=== PATIENT | male | born 1960 | race Caucasian/White ===

== ENCOUNTER 2016-12-28 14:34 | Outpatient (CLI) | payer OTHER ==
--- NOTE | 2016-12-28 17:37 | RAD ---
3 VIEWS LEFT HAND: Date: 12/28/16 HISTORY: Degenerative joint disease bilateral carpometacarpal joints. Repetitive motions at work. Left hand p ain. FINDINGS: There is osteoarthritis involving the interphalangeal joints, greatest involving the interphalangeal joint of the thumb, as well as the small finger and index finger. There is significant joint space narrowing and prominent osteophytes. There are prominent subchondral cystic changes involving the he ad of the proximal phalanx of the thumb. Minimal osteoarthritis involves the first carpometacarpal j oint. There is no fracture or dislocation involving the left hand. 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 POS: [facility]
--- NOTE | 2016-12-28 17:41 | RAD ---
3 VIEWS RIGHT HAND: Date: 12/28/16 HISTORY: Degenerative joint disease bilateral carpometacarpal joints. Arthritic pain. Repetitive motions at w ork. FINDINGS: There is osteoarthritis involving the interphalangeal joints, much greater involving the interphalan geal joint of the thumb and small finger. There is osteoarthritis involving the second metacarpophal angeal joint with joint space narrowing and prominent osteophyte present. There is mild osteoarthrit is involving the first carpometacarpal joint. Lucency is seen within the capitate, probably related to intraosseous ganglion. No fracture or dislocation seen. IMPRESSION: Osteoarthritis, greatest involving the interphalangeal joints and second metacarpophalangeal joint. POS: [facility]
== END 2016-12-28 14:35 | disposition home or self-care (01) ==
LOC: NAV RAD 14:34
PROVIDERS: ATTEND Family Medicine
DX: M18.0 Bilateral primary osteoarthritis of first carpometacarpal joints (principal); M19.042 Primary osteoarthritis, left hand

== ENCOUNTER 2020-01-12 18:13 | Emergency (ER) | payer OTHER ==
[2020-01-12 19:14] LABS: #Basophils 0.1 thou/uL (0.0-0.2); #Eosinphils 0.5 thou/uL (0.0-0.7); #Lymphocytes 1.2 thou/uL (1.20-3.40); #Monocytes 0.8 thou/uL (0.11-0.59); #Neutrophils 7.1 thou/uL (1.40-6.50); %Basophils 1.2 % (0.0-1.0); %Eosinophils 4.8 % (0.0-10.0); %Lymphocytes 12.4 % (21.0-51.0); %Monocytes 8.6 % (0.0-10.0); Hemoglobin 9.2 g/dL (14.0-18.0); Mean Corpuscular HGB CONC 31.8 g/dL (32.0-36.0); Mean Corpuscular Hemoglobin 31.2 pg (27.0-31.0); Mean Corpuscular Volume 98.1 fL (78.0-98.0); Mean Platelet Volume 7.6 fL (7.4-10.4); Platelet Count 285 thou/uL (130-400); RBC Distribution Width 12.7 % (11.5-14.5); Red Blood Cell (RBC) Count 2.94 mill/uL (4.70-6.10); White Blood Cell (WBC) Count 9.7 thou/uL (4.8-10.8)
[2020-01-12 19:27] LABS: ALT (SGPT) 17 U/L (8-55); AST (SGOT) 18 U/L (5-34); Albumin 3.5 g/dL (3.5-5.0); Alkaline Phosphatase 51 U/L (40-110); Anion Gap 14 mmol/L (10-20); BUN (Urea Nitrogen) 53 mg/dL (8.4-25.7); Bilirubin, Total 0.4 mg/dL (0.2-1.2); Calc. Creatinine Clearance 0 mL/min (70-130); Calcium 8.5 mg/dL (7.8-10.44); Carbon Dioxide 20 mmol/L (22-29); Chloride 105 mmol/L (98-107); Estimated GFR-MDRD 24; Globulin 2.7 g/dL (2.4-3.5); Glucose 157 mg/dL (70-105); Lipase 11 U/L (8-78); Potassium 4.4 mmol/L (3.5-5.1); Protein, Total 6.2 g/dL (6.0-8.3); Sodium 135 mmol/L (136-145)
== END 2020-01-12 19:55 | disposition home or self-care (01) ==
LOC: NAV ERS 18:13
DX: K59.00 Constipation, unspecified (principal); I13.0 Hypertensive heart and chronic kidney disease with heart failure and stage 1 through stage 4 chronic kidney disease, or unspecified chronic kidney disease; N18.9 Chronic kidney disease, unspecified; D64.9 Anemia, unspecified; K64.9 Unspecified hemorrhoids; E11.22 Type 2 diabetes mellitus with diabetic chronic kidney disease; E78.5 Hyperlipidemia, unspecified; Z87.891 Personal history of nicotine dependence; Z79.82 Long term (current) use of aspirin; Z79.899 Other long term (current) drug therapy
CPT/HCPCS: 80053; 83690; 85025; 99284

== ENCOUNTER 2020-01-27 09:11 | Emergency (ER) | payer OTHER ==
[2020-01-27] MEDS ORDERED: Fleet Enema 133 ML BOT ONE ×2 (09:40→10:59)
[2020-01-27] MEDS ORDERED: Ondansetron PF 4 MG/2 ML Vial ONE (10:06)
[2020-01-27] MEDS ORDERED: Sodium Chloride 0.9% 1,000 ML ONE (10:06)
--- NOTE | 2020-01-27 10:49 | RAD ---
Exam: 1 view abdomen HISTORY: Constipation. FINDINGS: Surgical clips in the right hemiabdomen may represent previous cystectomy. Nonspecific bowel gas pattern. No suspicious densities in the abdomen. Densities in the right hemipel vis are presumed to be phleboliths. Bowel gas pattern is nonspecific. Moderate fecal material is noted in the sigmoid colon and rectum. Vacuum disc phenomenon at L2-L3. Visualized bony pelvis and sacrum IMPRESSION: Significant fecal material sigmoid colon and rectum. Correlate for constipation.
[2020-01-27] MEDS ORDERED: Magnesium Citrate 300 ML BOT ONE (10:59)
[2020-01-27] MEDS ORDERED: Insulin Regular 300 UNITS/3 ML VIAL ONE (12:00)
== END 2020-01-27 12:40 | disposition home or self-care (01) ==
LOC: NAV ERS 09:11
DX: K59.00 Constipation, unspecified (principal); I10 Essential (primary) hypertension; E11.9 Type 2 diabetes mellitus without complications; E78.5 Hyperlipidemia, unspecified; Z87.891 Personal history of nicotine dependence; Z79.899 Other long term (current) drug therapy; Z79.82 Long term (current) use of aspirin
CPT/HCPCS: 36416; 74018; 96361; 96374; J1815; J2405; J7050

== ENCOUNTER 2020-11-15 16:59 | Inpatient (IN) | payer OTHER ==
[2020-11-15 17:31] VITALS: BMI 24.5
[2020-11-15] MEDS ORDERED: Polyethylene Glycol 3350 17 GM Packet PO PRN (17:59)
[2020-11-15] MEDS ORDERED: Senokot S 8.6-50 MG TAB PO PRN (17:59)
[2020-11-15] MEDS ORDERED: HumaLOG 300 UNITS/3 ML VIAL SC PRN ×2 (18:04)
[2020-11-15] MEDS ORDERED: Ondansetron ODT 4 MG TAB PO PRN (18:04)
[2020-11-15] MEDS ORDERED: Dextrose 50% Abboject 50 ML SYRINGE SLOW IVP PRN (18:04)
[2020-11-15] MEDS: Acetaminophen 500 MG TAB PO SCH (18:59)
[2020-11-15] MEDS: Calcium Carbonate 500 MG ChewTAB PO SCH (18:59)
[2020-11-15] MEDS: Lantus 1000 UNITS/10 ML VIAL SC SCH (21:10)
[2020-11-15] MEDS: Ferrous Sulfate 325 MG TAB PO SCH (21:11)
[2020-11-15] MEDS: Aspirin 81 mg Enteric Coated Tablet PO SCH (21:11)
[2020-11-15] MEDS: Ascorbic Acid 500 mg Chewable Tablet PO SCH (21:12)
[2020-11-15] MEDS: TICAGRELOR 90 MG TABLET PO SCH (21:12)
[2020-11-15] MEDS: hydrALAZINE 25 MG TAB PO SCH (21:12)
[2020-11-15] MEDS: Atorvastatin Calcium 40 MG TAB PO SCH (21:12)
[2020-11-15] MEDS: cloNIDine 0.2 MG TAB PO SCH (21:13)
[2020-11-16] MEDS: Acetaminophen 500 MG TAB PO SCH ×5 (00:22→23:58)
[2020-11-16] MEDS: traMADol HCl 50 MG TAB PO SCH ×3 (00:23→20:11)
[2020-11-16] MEDS: hydrALAZINE 25 MG TAB PO SCH ×3 (05:24→20:09)
[2020-11-16 05:36] LABS: #Basophils 0.1 thou/uL (0.0-0.2); #Eosinphils 0.1 thou/uL (0.0-0.7); #Lymphocytes 0.3 thou/uL (1.20-3.40); #Monocytes 0.9 thou/uL (0.11-0.59); #Neutrophils 17.7 thou/uL (1.40-6.50); %Basophils 0.3 % (0.0-1.0); %Eosinophils 0.6 % (0.0-10.0); %Lymphocytes 1.4 % (21.0-51.0); %Monocytes 4.6 % (0.0-10.0); %Neutrophils 93.1 % (42.0-75.0); Hemoglobin 7.6 g/dL (14.0-18.0); Mean Corpuscular HGB CONC 30.5 g/dL (32.0-36.0); Mean Corpuscular Hemoglobin 30.3 pg (27.0-31.0); Mean Corpuscular Volume 99.3 fL (78.0-98.0); Mean Platelet Volume 6.1 fL (7.4-10.4); Platelet Count 235 thou/uL (130-400); RBC Distribution Width 13.9 % (11.5-14.5); Red Blood Cell (RBC) Count 2.49 mill/uL (4.70-6.10)
[2020-11-16 05:53] LABS: ALT (SGPT) Less than 6 U/L (8-55); AST (SGOT) 16 U/L (5-34); Albumin 2.4 g/dL (3.5-5.0); Alkaline Phosphatase 132 U/L (40-110); Anion Gap 14 mmol/L (10-20); BUN (Urea Nitrogen) 55 mg/dL (8.4-25.7); Bilirubin, Total 0.6 mg/dL (0.2-1.2); Calc. Creatinine Clearance 29 mL/min (70-130); Calcium 7.4 mg/dL (7.8-10.44); Carbon Dioxide 28 mmol/L (22-29); Chloride 99 mmol/L (98-107); Globulin 3.1 g/dL (2.4-3.5); Glucose 121 mg/dL (70-105); Potassium 3.5 mmol/L (3.5-5.1); Protein, Total 5.5 g/dL (6.0-8.3); Sodium 137 mmol/L (136-145)
[2020-11-16] MEDS ORDERED: Ondansetron ODT 4 MG TAB SL PRN (08:15)
[2020-11-16] MEDS: Calcium Carbonate 500 MG ChewTAB PO SCH ×4 (08:54→17:55)
[2020-11-16] MEDS: Famotidine 20 MG TAB PO SCH (08:55)
[2020-11-16] MEDS: Furosemide 80 MG TAB PO SCH ×2 (08:55→14:41)
[2020-11-16] MEDS: Aspirin 81 mg Enteric Coated Tablet PO SCH ×2 (08:55→20:06)
[2020-11-16] MEDS: Ascorbic Acid 500 mg Chewable Tablet PO SCH ×2 (08:55→20:06)
[2020-11-16] MEDS: Ferrous Sulfate 325 MG TAB PO SCH ×2 (08:55→20:05)
[2020-11-16] MEDS: Carvedilol 25 MG TAB PO SCH ×2 (08:56→17:55)
[2020-11-16] MEDS: cloNIDine 0.2 MG TAB PO SCH ×3 (08:57→20:06)
[2020-11-16] MEDS: TICAGRELOR 90 MG TABLET PO SCH ×2 (08:59→20:06)
[2020-11-16] MEDS ORDERED: AQUAPHOR TOP SCH (09:00)
[2020-11-16] MEDS ORDERED: Allopurinol 100 MG TAB PO SCH ×4 (09:00→21:45)
[2020-11-16] MEDS: Cholecalciferol 1,000 UNITS (25 MCG) TAB PO SCH (09:01)
[2020-11-16] MEDS ORDERED: Eucerin (Mineral Oil/Petrolatum,White) 30 gm Jar TOP SCH (10:45)
[2020-11-16] MEDS: Lantus 1000 UNITS/10 ML VIAL SC SCH (20:04)
[2020-11-16] MEDS: Mirtazapine 15 MG TAB PO SCH (20:05)
[2020-11-16] MEDS: Atorvastatin Calcium 40 MG TAB PO SCH (20:05)
[2020-11-17] MEDS: hydrALAZINE 25 MG TAB PO SCH ×3 (05:17→21:07)
[2020-11-17] MEDS: Acetaminophen 500 MG TAB PO SCH ×3 (05:18→18:15)
[2020-11-17] MEDS: Famotidine 20 MG TAB PO SCH (08:38)
[2020-11-17] MEDS: Carvedilol 25 MG TAB PO SCH ×2 (08:38→17:14)
[2020-11-17] MEDS: traMADol HCl 50 MG TAB PO SCH ×2 (08:39→21:08)
[2020-11-17] MEDS: Cholecalciferol 1,000 UNITS (25 MCG) TAB PO SCH (08:40)
[2020-11-17] MEDS: Ascorbic Acid 500 mg Chewable Tablet PO SCH ×2 (08:40→21:08)
[2020-11-17] MEDS: cloNIDine 0.2 MG TAB PO SCH ×3 (08:41→21:08)
[2020-11-17] MEDS: Ferrous Sulfate 325 MG TAB PO SCH ×2 (08:41→21:08)
[2020-11-17] MEDS: Aspirin 81 mg Enteric Coated Tablet PO SCH ×2 (08:41→21:07)
[2020-11-17] MEDS: TICAGRELOR 90 MG TABLET PO SCH ×2 (08:42→21:08)
[2020-11-17] MEDS: Calcium Carbonate 500 MG ChewTAB PO SCH ×3 (08:42→18:16)
[2020-11-17] MEDS: Eucerin (Mineral Oil/Petrolatum,White) 30 gm Jar TOP SCH (08:42)
[2020-11-17] MEDS: Furosemide 80 MG TAB PO SCH (08:42)
[2020-11-17] MEDS: Lantus 1000 UNITS/10 ML VIAL SC SCH (21:06)
[2020-11-17] MEDS: Mirtazapine 15 MG TAB PO SCH (21:07)
[2020-11-17] MEDS: Atorvastatin Calcium 40 MG TAB PO SCH (21:08)
[2020-11-18] MEDS: Acetaminophen 500 MG TAB PO SCH ×3 (00:09→12:40)
[2020-11-18 05:11] LABS: #Basophils 0.1 thou/uL (0.0-0.2); #Eosinphils 0.3 thou/uL (0.0-0.7); #Lymphocytes 0.4 thou/uL (1.20-3.40); #Monocytes 1.7 thou/uL (0.11-0.59); #Neutrophils 13.8 thou/uL (1.40-6.50); %Basophils 0.7 % (0.0-1.0); %Lymphocytes 2.5 % (21.0-51.0); %Monocytes 10.1 % (0.0-10.0); %Neutrophils 84.7 % (42.0-75.0); Hemoglobin 7.6 g/dL (14.0-18.0); Mean Corpuscular HGB CONC 30.3 g/dL (32.0-36.0); Mean Corpuscular Hemoglobin 30.1 pg (27.0-31.0); Mean Corpuscular Volume 99.5 fL (78.0-98.0); Mean Platelet Volume 5.9 fL (7.4-10.4); Platelet Count 319 thou/uL (130-400); Red Blood Cell (RBC) Count 2.53 mill/uL (4.70-6.10); White Blood Cell (WBC) Count 16.4 thou/uL (4.8-10.8)
[2020-11-18] MEDS: hydrALAZINE 25 MG TAB PO SCH ×2 (05:50→13:24)
[2020-11-18 08:15] VITALS: TEMP 98.6
[2020-11-18] MEDS ORDERED: Metolazone 5 MG TAB PO SCH (08:30)
[2020-11-18] MEDS: Furosemide 80 MG TAB PO SCH (08:38)
[2020-11-18] MEDS: Cholecalciferol 1,000 UNITS (25 MCG) TAB PO SCH (08:38)
[2020-11-18] MEDS: Ascorbic Acid 500 mg Chewable Tablet PO SCH (08:39)
[2020-11-18] MEDS: traMADol HCl 50 MG TAB PO SCH (08:39)
[2020-11-18] MEDS: Famotidine 20 MG TAB PO SCH (08:39)
[2020-11-18] MEDS: Calcium Carbonate 500 MG ChewTAB PO SCH ×2 (08:39→12:39)
[2020-11-18] MEDS: Ferrous Sulfate 325 MG TAB PO SCH (08:39)
[2020-11-18] MEDS: Carvedilol 25 MG TAB PO SCH (08:40)
[2020-11-18] MEDS: TICAGRELOR 90 MG TABLET PO SCH (08:40)
[2020-11-18] MEDS: Aspirin 81 mg Enteric Coated Tablet PO SCH (08:40)
[2020-11-18] MEDS: cloNIDine 0.2 MG TAB PO SCH (08:41)
[2020-11-18] MEDS: Eucerin (Mineral Oil/Petrolatum,White) 30 gm Jar TOP SCH (08:41)
[2020-11-18] MEDS ORDERED: Scopolamine 1.5 mg/72 hour Patch TD SCH (12:00)
[2020-11-18 15:12] VITALS: BP 143/69
== END 2020-11-18 15:05 | disposition short-term general hospital (02) | DRG 559 ==
LOC: NAV ACUTE 16:59
PROVIDERS: ADMIT Family Medicine; ATTEND Family Medicine
DX: S72.001D Fracture of unspecified part of neck of right femur, subsequent encounter for closed fracture with routine healing (principal); N18.6 End stage renal disease; I50.23 Acute on chronic systolic (congestive) heart failure; J96.90 Respiratory failure, unspecified, unspecified whether with hypoxia or hypercapnia; I13.2 Hypertensive heart and chronic kidney disease with heart failure and with stage 5 chronic kidney disease, or end stage renal disease; E11.22 Type 2 diabetes mellitus with diabetic chronic kidney disease; E78.5 Hyperlipidemia, unspecified; I25.10 Atherosclerotic heart disease of native coronary artery without angina pectoris; E11.319 Type 2 diabetes mellitus with unspecified diabetic retinopathy without macular edema; D63.1 Anemia in chronic kidney disease; R53.81 Other malaise; R63.0 Anorexia; F32.9 Major depressive disorder, single episode, unspecified; E11.40 Type 2 diabetes mellitus with diabetic neuropathy, unspecified; Z95.5 Presence of coronary angioplasty implant and graft; Z90.49 Acquired absence of other specified parts of digestive tract; Z98.890 Other specified postprocedural states; Z87.891 Personal history of nicotine dependence; Z79.82 Long term (current) use of aspirin; Z79.4 Long term (current) use of insulin; Z79.899 Other long term (current) drug therapy; Z68.24 Body mass index [BMI] 24.0-24.9, adult; Z99.2 Dependence on renal dialysis
CPT/HCPCS: 36416; 71045; 80053; 84145; 85025; 97602; J1815

== ENCOUNTER 2020-11-29 19:52 | Inpatient (IN) | payer OTHER ==
[2020-11-29] MEDS ORDERED: Dextrose 50% Abboject 50 ML SYRINGE SLOW IVP PRN (20:58)
[2020-11-29] MEDS ORDERED: Ondansetron ODT 4 MG TAB PO PRN (20:58)
[2020-11-29] MEDS ORDERED: HumaLOG 300 UNITS/3 ML VIAL SC PRN (20:58)
[2020-11-29] MEDS ORDERED: Furosemide 80 MG TAB PO SCH (21:00)
[2020-11-29] MEDS ORDERED: Scopolamine 1.5 mg/72 hour Patch TD SCH (21:00)
[2020-11-29] MEDS: Aspirin 81 mg Enteric Coated Tablet PO SCH (21:59)
[2020-11-29] MEDS: Atorvastatin Calcium 40 MG TAB PO SCH (21:59)
[2020-11-29] MEDS: Mirtazapine 15 MG Soltab PO SCH (21:59)
[2020-11-29] MEDS: Senokot S 8.6-50 MG TAB PO SCH (21:59)
[2020-11-29] MEDS: Ascorbic Acid 500 mg Chewable Tablet PO SCH (22:00)
[2020-11-29] MEDS: cloNIDine 0.1 MG TAB PO SCH (22:01)
[2020-11-29] MEDS: Ferrous Sulfate 325 MG TAB PO SCH (22:01)
[2020-11-29] MEDS: hydrALAZINE 25 MG TAB PO SCH (22:03)
[2020-11-29] MEDS: TICAGRELOR 90 MG TABLET PO SCH (22:04)
[2020-11-30 05:43] LABS: Anion Gap 15 mmol/L (10-20); BUN (Urea Nitrogen) 25 mg/dL (8.4-25.7); Calc. Creatinine Clearance 29 mL/min (70-130); Calcium 8.1 mg/dL (7.8-10.44); Carbon Dioxide 29 mmol/L (22-29); Chloride 98 mmol/L (98-107); Glucose 109 mg/dL (70-105); Potassium 4.3 mmol/L (3.5-5.1); Sodium 138 mmol/L (136-145)
[2020-11-30 05:59] LABS: Band 15 % (5-11); Eosinophils 1 % (0-10); Hemoglobin 8.8 g/dL (14.0-18.0); Hypochromia SLIGHT = 6-15 cells (100X) (0-5/hpf); Lymphocytes 5 % (21-51); MDiff Complete? YES; Mean Corpuscular HGB CONC 29.8 g/dL (32.0-36.0); Mean Corpuscular Hemoglobin 29.9 pg (27.0-31.0); Mean Platelet Volume 6.1 fL (7.4-10.4); Monocytes 4 % (0-10); Neutrophil 75 % (42-75); Platelet Count 332 thou/uL (130-400); Platelet Morphology Comment Appears Adequate; RBC Distribution Width 15.6 % (11.5-14.5); Red Blood Cell (RBC) Count 2.95 mill/uL (4.70-6.10); White Blood Cell (WBC) Count 14.6 thou/uL (4.8-10.8)
[2020-11-30] MEDS: cloNIDine 0.1 MG TAB PO SCH ×2 (08:19→20:09)
[2020-11-30] MEDS: Polyethylene Glycol 3350 17 GM Packet PO SCH (08:19)
[2020-11-30] MEDS: Calcium Carbonate 500 MG ChewTAB PO SCH ×3 (08:19→17:46)
[2020-11-30] MEDS: Ferrous Sulfate 325 MG TAB PO SCH ×2 (08:19→20:08)
[2020-11-30] MEDS: Cholecalciferol 1,000 UNITS (25 MCG) TAB PO SCH (08:20)
[2020-11-30] MEDS: Aspirin 81 mg Enteric Coated Tablet PO SCH ×2 (08:20→20:08)
[2020-11-30] MEDS: Carvedilol 25 MG TAB PO SCH ×2 (08:20→16:00)
[2020-11-30] MEDS: hydrALAZINE 25 MG TAB PO SCH ×2 (08:20→20:08)
[2020-11-30] MEDS: Senokot S 8.6-50 MG TAB PO SCH ×2 (08:21→20:12)
[2020-11-30] MEDS: traMADol HCl 50 MG TAB PO SCH ×2 (08:21→20:10)
[2020-11-30] MEDS: Ascorbic Acid 500 mg Chewable Tablet PO SCH ×2 (08:22→20:08)
[2020-11-30] MEDS: Metolazone 5 MG TAB PO SCH (08:22)
[2020-11-30] MEDS: Furosemide 80 MG TAB PO SCH ×2 (08:22→15:50)
[2020-11-30] MEDS: Famotidine 20 MG TAB PO SCH (08:23)
[2020-11-30] MEDS: TICAGRELOR 90 MG TABLET PO SCH ×2 (08:23→20:06)
[2020-11-30] MEDS ORDERED: Ondansetron ODT 4 MG TAB SL PRN (10:30)
[2020-11-30] MEDS: Scopolamine 1.5 mg/72 hour Patch TD SCH (15:51)
[2020-11-30] MEDS: Atorvastatin Calcium 40 MG TAB PO SCH (20:06)
[2020-11-30] MEDS: Mirtazapine 15 MG Soltab PO SCH (20:08)
[2020-12-01] MEDS: traMADol HCl 50 MG TAB PO SCH ×2 (09:13→20:10)
[2020-12-01] MEDS: Furosemide 80 MG TAB PO SCH ×2 (09:15→14:54)
[2020-12-01] MEDS: TICAGRELOR 90 MG TABLET PO SCH ×2 (09:15→20:11)
[2020-12-01] MEDS: Metolazone 5 MG TAB PO SCH (09:15)
[2020-12-01] MEDS: Ferrous Sulfate 325 MG TAB PO SCH ×2 (09:15→20:12)
[2020-12-01] MEDS: Aspirin 81 mg Enteric Coated Tablet PO SCH ×2 (09:16→20:11)
[2020-12-01] MEDS: Cholecalciferol 1,000 UNITS (25 MCG) TAB PO SCH (09:16)
[2020-12-01] MEDS: Senokot S 8.6-50 MG TAB PO SCH ×2 (09:16→20:12)
[2020-12-01] MEDS: Ascorbic Acid 500 mg Chewable Tablet PO SCH ×2 (09:16→20:10)
[2020-12-01] MEDS: Famotidine 20 MG TAB PO SCH (09:16)
[2020-12-01] MEDS: Allopurinol 100 MG TAB PO SCH (09:16)
[2020-12-01] MEDS: cloNIDine 0.1 MG TAB PO SCH ×2 (09:17→20:11)
[2020-12-01] MEDS: Carvedilol 25 MG TAB PO SCH ×2 (09:17→17:57)
[2020-12-01] MEDS: Polyethylene Glycol 3350 17 GM Packet PO SCH (09:17)
[2020-12-01] MEDS: hydrALAZINE 25 MG TAB PO SCH ×2 (09:17→20:11)
[2020-12-01] MEDS: Calcium Carbonate 500 MG ChewTAB PO SCH ×3 (09:17→17:57)
[2020-12-01] MEDS: Mirtazapine 15 MG Soltab PO SCH (20:09)
[2020-12-01] MEDS: Atorvastatin Calcium 40 MG TAB PO SCH (20:10)
[2020-12-02] MEDS: traMADol HCl 50 MG TAB PO SCH ×2 (08:50→20:57)
[2020-12-02] MEDS: TICAGRELOR 90 MG TABLET PO SCH ×2 (08:51→21:00)
[2020-12-02] MEDS: Ferrous Sulfate 325 MG TAB PO SCH ×2 (08:52→20:59)
[2020-12-02] MEDS: Senokot S 8.6-50 MG TAB PO SCH ×2 (08:52→20:58)
[2020-12-02] MEDS: Famotidine 20 MG TAB PO SCH (08:52)
[2020-12-02] MEDS: Cholecalciferol 1,000 UNITS (25 MCG) TAB PO SCH (08:52)
[2020-12-02] MEDS: Metolazone 5 MG TAB PO SCH (08:52)
[2020-12-02] MEDS: Aspirin 81 mg Enteric Coated Tablet PO SCH ×2 (08:52→21:01)
[2020-12-02] MEDS: Furosemide 80 MG TAB PO SCH ×3 (08:53→16:12)
[2020-12-02] MEDS: Polyethylene Glycol 3350 17 GM Packet PO SCH (08:53)
[2020-12-02] MEDS: Calcium Carbonate 500 MG ChewTAB PO SCH ×3 (08:53→17:50)
[2020-12-02] MEDS: Ascorbic Acid 500 mg Chewable Tablet PO SCH ×2 (08:53→20:59)
[2020-12-02] MEDS: Carvedilol 25 MG TAB PO SCH ×2 (09:47→16:12)
[2020-12-02] MEDS: hydrALAZINE 25 MG TAB PO SCH ×2 (09:48→21:02)
[2020-12-02] MEDS: cloNIDine 0.1 MG TAB PO SCH ×2 (09:48→21:00)
[2020-12-02] MEDS ORDERED: hydrALAZINE 10 MG TAB PO SCH (12:00)
[2020-12-02] MEDS ORDERED: cloNIDine 0.1 MG TAB PO SCH (12:15)
[2020-12-02] MEDS ORDERED: Carvedilol 25 MG TAB PO SCH (12:15)
[2020-12-02] MEDS: Mirtazapine 15 MG Soltab PO SCH (20:56)
[2020-12-02] MEDS: Atorvastatin Calcium 40 MG TAB PO SCH (20:59)
[2020-12-03 06:33] LABS: #Basophils 0.1 thou/uL (0.0-0.2); #Eosinphils 0.2 thou/uL (0.0-0.7); #Lymphocytes 0.8 thou/uL (1.20-3.40); #Monocytes 1.8 thou/uL (0.11-0.59); #Neutrophils 11.7 thou/uL (1.40-6.50); %Basophils 0.9 % (0.0-1.0); %Eosinophils 1.4 % (0.0-10.0); %Lymphocytes 5.3 % (21.0-51.0); %Monocytes 12.5 % (0.0-10.0); %Neutrophils 79.9 % (42.0-75.0); Hemoglobin 7.8 g/dL (14.0-18.0); Mean Corpuscular HGB CONC 29.1 g/dL (32.0-36.0); Mean Corpuscular Hemoglobin 29.5 pg (27.0-31.0); Mean Platelet Volume 5.7 fL (7.4-10.4); Platelet Count 371 thou/uL (130-400); RBC Distribution Width 15.8 % (11.5-14.5); Red Blood Cell (RBC) Count 2.65 mill/uL (4.70-6.10); White Blood Cell (WBC) Count 14.7 thou/uL (4.8-10.8)
[2020-12-03] MEDS: Calcium Carbonate 500 MG ChewTAB PO SCH ×3 (08:10→19:46)
[2020-12-03] MEDS: Ascorbic Acid 500 mg Chewable Tablet PO SCH ×2 (08:10→21:22)
[2020-12-03] MEDS: hydrALAZINE 25 MG TAB PO SCH ×2 (08:10→21:22)
[2020-12-03] MEDS: Polyethylene Glycol 3350 17 GM Packet PO SCH (08:10)
[2020-12-03] MEDS: Carvedilol 25 MG TAB PO SCH ×2 (08:10→16:27)
[2020-12-03] MEDS: Allopurinol 100 MG TAB PO SCH (08:10)
[2020-12-03] MEDS: Famotidine 20 MG TAB PO SCH (08:11)
[2020-12-03] MEDS: traMADol HCl 50 MG TAB PO SCH ×2 (08:11→21:17)
[2020-12-03] MEDS: Cholecalciferol 1,000 UNITS (25 MCG) TAB PO SCH (08:12)
[2020-12-03] MEDS: cloNIDine 0.1 MG TAB PO SCH ×2 (08:12→21:20)
[2020-12-03] MEDS: Aspirin 81 mg Enteric Coated Tablet PO SCH ×2 (08:12→21:21)
[2020-12-03] MEDS: TICAGRELOR 90 MG TABLET PO SCH ×2 (08:13→21:23)
[2020-12-03] MEDS: Ferrous Sulfate 325 MG TAB PO SCH ×2 (08:13→21:19)
[2020-12-03] MEDS: Metolazone 5 MG TAB PO SCH (08:13)
[2020-12-03] MEDS: Furosemide 80 MG TAB PO SCH ×2 (08:13→15:42)
[2020-12-03] MEDS: Senokot S 8.6-50 MG TAB PO SCH ×2 (08:13→21:19)
[2020-12-03] MEDS: Scopolamine 1.5 mg/72 hour Patch TD SCH (15:42)
[2020-12-03] MEDS: Mirtazapine 15 MG Soltab PO SCH (21:17)
[2020-12-03] MEDS: Atorvastatin Calcium 40 MG TAB PO SCH (21:22)
[2020-12-04] MEDS: Polyethylene Glycol 3350 17 GM Packet PO SCH (10:14)
[2020-12-04] MEDS: traMADol HCl 50 MG TAB PO SCH ×2 (10:15→21:07)
[2020-12-04] MEDS: Carvedilol 25 MG TAB PO SCH ×2 (10:16→16:00)
[2020-12-04] MEDS: hydrALAZINE 25 MG TAB PO SCH ×2 (10:18→21:07)
[2020-12-04] MEDS: cloNIDine 0.1 MG TAB PO SCH ×2 (10:19→21:06)
[2020-12-04] MEDS: Furosemide 80 MG TAB PO SCH ×2 (10:20→15:59)
[2020-12-04] MEDS: Ferrous Sulfate 325 MG TAB PO SCH ×2 (10:20→21:07)
[2020-12-04] MEDS: Ascorbic Acid 500 mg Chewable Tablet PO SCH ×2 (10:20→21:07)
[2020-12-04] MEDS: Aspirin 81 mg Enteric Coated Tablet PO SCH ×2 (10:21→21:07)
[2020-12-04] MEDS: Cholecalciferol 1,000 UNITS (25 MCG) TAB PO SCH (10:21)
[2020-12-04] MEDS: Famotidine 20 MG TAB PO SCH (10:22)
[2020-12-04] MEDS: Senokot S 8.6-50 MG TAB PO SCH ×2 (10:22→21:06)
[2020-12-04] MEDS: TICAGRELOR 90 MG TABLET PO SCH ×2 (10:23→21:07)
[2020-12-04] MEDS: Calcium Carbonate 500 MG ChewTAB PO SCH ×3 (10:23→19:40)
[2020-12-04] MEDS: Metolazone 5 MG TAB PO SCH (10:23)
[2020-12-04] MEDS: Mirtazapine 15 MG Soltab PO SCH (21:05)
[2020-12-04] MEDS: Mupirocin 2% Ointment 22 GM Tube TOP SCH (21:05)
[2020-12-04] MEDS: Atorvastatin Calcium 40 MG TAB PO SCH (21:06)
[2020-12-05] MEDS: Polyethylene Glycol 3350 17 GM Packet PO SCH (08:17)
[2020-12-05] MEDS: Calcium Carbonate 500 MG ChewTAB PO SCH ×3 (08:18→17:57)
[2020-12-05] MEDS: traMADol HCl 50 MG TAB PO SCH ×2 (08:18→21:33)
[2020-12-05] MEDS: Allopurinol 100 MG TAB PO SCH (08:19)
[2020-12-05] MEDS: Carvedilol 25 MG TAB PO SCH ×2 (08:19→17:46)
[2020-12-05] MEDS: Ascorbic Acid 500 mg Chewable Tablet PO SCH ×2 (08:20→21:32)
[2020-12-05] MEDS: Senokot S 8.6-50 MG TAB PO SCH ×2 (08:20→21:31)
[2020-12-05] MEDS: Metolazone 5 MG TAB PO SCH (08:21)
[2020-12-05] MEDS: TICAGRELOR 90 MG TABLET PO SCH ×2 (08:21→21:32)
[2020-12-05] MEDS: Furosemide 80 MG TAB PO SCH ×2 (08:21→15:58)
[2020-12-05] MEDS: hydrALAZINE 25 MG TAB PO SCH ×2 (08:21→21:31)
[2020-12-05] MEDS: Ferrous Sulfate 325 MG TAB PO SCH ×2 (08:22→21:31)
[2020-12-05] MEDS: Cholecalciferol 1,000 UNITS (25 MCG) TAB PO SCH (08:22)
[2020-12-05] MEDS: Famotidine 20 MG TAB PO SCH (08:22)
[2020-12-05] MEDS: Aspirin 81 mg Enteric Coated Tablet PO SCH ×2 (08:23→21:33)
[2020-12-05] MEDS: cloNIDine 0.1 MG TAB PO SCH ×2 (08:23→21:32)
[2020-12-05] MEDS: Mupirocin 2% Ointment 22 GM Tube TOP SCH ×2 (08:24→21:30)
[2020-12-05] MEDS: HumaLOG 300 UNITS/3 ML VIAL SC PRN ×2 (13:20→18:00)
[2020-12-05] MEDS: Atorvastatin Calcium 40 MG TAB PO SCH (21:30)
[2020-12-05] MEDS: Mirtazapine 15 MG Soltab PO SCH (21:33)
[2020-12-06] MEDS: Senokot S 8.6-50 MG TAB PO SCH ×2 (09:21→20:38)
[2020-12-06] MEDS: Polyethylene Glycol 3350 17 GM Packet PO SCH (09:21)
[2020-12-06] MEDS: Furosemide 80 MG TAB PO SCH ×2 (09:22→18:36)
[2020-12-06] MEDS: Ascorbic Acid 500 mg Chewable Tablet PO SCH ×2 (09:22→20:38)
[2020-12-06] MEDS: Cholecalciferol 1,000 UNITS (25 MCG) TAB PO SCH (09:22)
[2020-12-06] MEDS: Famotidine 20 MG TAB PO SCH (09:22)
[2020-12-06] MEDS: Metolazone 5 MG TAB PO SCH (09:22)
[2020-12-06] MEDS: Ferrous Sulfate 325 MG TAB PO SCH ×2 (09:23→20:38)
[2020-12-06] MEDS: TICAGRELOR 90 MG TABLET PO SCH ×2 (09:23→20:37)
[2020-12-06] MEDS: Carvedilol 25 MG TAB PO SCH ×2 (09:23→18:37)
[2020-12-06] MEDS: cloNIDine 0.1 MG TAB PO SCH ×2 (09:23→20:38)
[2020-12-06] MEDS: traMADol HCl 50 MG TAB PO SCH ×2 (09:24→20:35)
[2020-12-06] MEDS: Calcium Carbonate 500 MG ChewTAB PO SCH ×3 (09:25→19:13)
[2020-12-06] MEDS: Aspirin 81 mg Enteric Coated Tablet PO SCH ×2 (09:25→20:38)
[2020-12-06] MEDS: Mupirocin 2% Ointment 22 GM Tube TOP SCH ×2 (09:26→20:39)
[2020-12-06] MEDS: hydrALAZINE 25 MG TAB PO SCH ×2 (09:53→20:37)
[2020-12-06] MEDS: Scopolamine 1.5 mg/72 hour Patch TD SCH (18:37)
[2020-12-06] MEDS: Atorvastatin Calcium 40 MG TAB PO SCH (20:38)
[2020-12-06] MEDS: Mirtazapine 15 MG Soltab PO SCH (20:38)
[2020-12-07] MEDS: Mupirocin 2% Ointment 22 GM Tube TOP SCH ×2 (08:23→21:14)
[2020-12-07] MEDS: Senokot S 8.6-50 MG TAB PO SCH ×2 (08:24→21:17)
[2020-12-07] MEDS: Allopurinol 100 MG TAB PO SCH (08:24)
[2020-12-07] MEDS: traMADol HCl 50 MG TAB PO SCH ×2 (08:24→21:16)
[2020-12-07] MEDS: Carvedilol 25 MG TAB PO SCH ×2 (08:24→16:22)
[2020-12-07] MEDS: Ascorbic Acid 500 mg Chewable Tablet PO SCH ×2 (08:24→21:17)
[2020-12-07] MEDS: Aspirin 81 mg Enteric Coated Tablet PO SCH ×2 (08:24→21:17)
[2020-12-07] MEDS: Metolazone 5 MG TAB PO SCH (08:24)
[2020-12-07] MEDS: hydrALAZINE 25 MG TAB PO SCH ×2 (08:25→21:19)
[2020-12-07] MEDS: cloNIDine 0.1 MG TAB PO SCH ×2 (08:25→21:18)
[2020-12-07] MEDS: Famotidine 20 MG TAB PO SCH (08:25)
[2020-12-07] MEDS: Ferrous Sulfate 325 MG TAB PO SCH ×2 (08:26→21:19)
[2020-12-07] MEDS: Polyethylene Glycol 3350 17 GM Packet PO SCH (08:26)
[2020-12-07] MEDS: Furosemide 80 MG TAB PO SCH ×2 (08:26→15:45)
[2020-12-07] MEDS: TICAGRELOR 90 MG TABLET PO SCH ×2 (08:26→21:18)
[2020-12-07] MEDS: Calcium Carbonate 500 MG ChewTAB PO SCH ×3 (08:27→17:51)
[2020-12-07] MEDS: Cholecalciferol 1,000 UNITS (25 MCG) TAB PO SCH (08:27)
[2020-12-07] MEDS: Fluticasone Propionate Nasal Spray 16 gm Bottle NASAL SCH (08:27)
[2020-12-07] MEDS: Atorvastatin Calcium 40 MG TAB PO SCH (21:18)
[2020-12-07] MEDS: Mirtazapine 15 MG Soltab PO SCH (21:26)
[2020-12-08] MEDS: Senokot S 8.6-50 MG TAB PO SCH ×2 (08:52→20:47)
[2020-12-08] MEDS: Furosemide 80 MG TAB PO SCH ×2 (08:54→16:14)
[2020-12-08] MEDS: Aspirin 81 mg Enteric Coated Tablet PO SCH ×2 (08:54→20:48)
[2020-12-08] MEDS: Famotidine 20 MG TAB PO SCH (08:54)
[2020-12-08] MEDS: Ascorbic Acid 500 mg Chewable Tablet PO SCH ×2 (08:54→20:49)
[2020-12-08] MEDS: Carvedilol 25 MG TAB PO SCH ×2 (08:54→17:31)
[2020-12-08] MEDS: hydrALAZINE 25 MG TAB PO SCH ×2 (08:54→20:48)
[2020-12-08] MEDS: traMADol HCl 50 MG TAB PO SCH ×2 (08:55→20:47)
[2020-12-08] MEDS: TICAGRELOR 90 MG TABLET PO SCH ×2 (08:55→20:49)
[2020-12-08] MEDS: Ferrous Sulfate 325 MG TAB PO SCH ×2 (08:57→20:48)
[2020-12-08] MEDS: Metolazone 5 MG TAB PO SCH (08:57)
[2020-12-08] MEDS: cloNIDine 0.1 MG TAB PO SCH ×2 (08:57→20:48)
[2020-12-08] MEDS: Fluticasone Propionate Nasal Spray 16 gm Bottle NASAL SCH (09:06)
[2020-12-08] MEDS: Cholecalciferol 1,000 UNITS (25 MCG) TAB PO SCH (09:07)
[2020-12-08] MEDS: Mupirocin 2% Ointment 22 GM Tube TOP SCH ×2 (09:07→20:49)
[2020-12-08] MEDS: Calcium Carbonate 500 MG ChewTAB PO SCH ×3 (09:07→18:31)
[2020-12-08] MEDS: Polyethylene Glycol 3350 17 GM Packet PO SCH (09:08)
[2020-12-08] MEDS: Dronabinol 2.5 MG CAP PO SCH (17:04)
[2020-12-08] MEDS: Atorvastatin Calcium 40 MG TAB PO SCH (20:47)
[2020-12-08] MEDS: Mirtazapine 15 MG Soltab PO SCH (20:48)
[2020-12-09 06:14] LABS: #Basophils 0.2 thou/uL (0.0-0.2); #Eosinphils 0.2 thou/uL (0.0-0.7); #Lymphocytes 0.8 thou/uL (1.20-3.40); #Monocytes 2.3 thou/uL (0.11-0.59); #Neutrophils 14.5 thou/uL (1.40-6.50); %Basophils 1.2 % (0.0-1.0); %Eosinophils 1.1 % (0.0-10.0); %Lymphocytes 4.2 % (21.0-51.0); %Monocytes 12.7 % (0.0-10.0); %Neutrophils 80.8 % (42.0-75.0); Hemoglobin 8.4 g/dL (14.0-18.0); Mean Corpuscular HGB CONC 29.5 g/dL (32.0-36.0); Mean Corpuscular Hemoglobin 29.9 pg (27.0-31.0); Mean Platelet Volume 5.8 fL (7.4-10.4); Platelet Count 326 thou/uL (130-400); RBC Distribution Width 17.9 % (11.5-14.5); Red Blood Cell (RBC) Count 2.82 mill/uL (4.70-6.10)
[2020-12-09] MEDS: Mupirocin 2% Ointment 22 GM Tube TOP SCH ×2 (09:13→20:31)
[2020-12-09] MEDS: Polyethylene Glycol 3350 17 GM Packet PO SCH (09:13)
[2020-12-09] MEDS: Calcium Carbonate 500 MG ChewTAB PO SCH ×3 (09:13→17:42)
[2020-12-09] MEDS: Metolazone 5 MG TAB PO SCH (09:14)
[2020-12-09] MEDS: Fluticasone Propionate Nasal Spray 16 gm Bottle NASAL SCH (09:14)
[2020-12-09] MEDS: Allopurinol 100 MG TAB PO SCH (09:14)
[2020-12-09] MEDS: Senokot S 8.6-50 MG TAB PO SCH ×2 (09:14→20:25)
[2020-12-09] MEDS: Furosemide 80 MG TAB PO SCH ×2 (09:15→14:15)
[2020-12-09] MEDS: hydrALAZINE 25 MG TAB PO SCH ×2 (09:15→20:26)
[2020-12-09] MEDS: Aspirin 81 mg Enteric Coated Tablet PO SCH ×2 (09:15→20:25)
[2020-12-09] MEDS: Famotidine 20 MG TAB PO SCH (09:15)
[2020-12-09] MEDS: Ferrous Sulfate 325 MG TAB PO SCH ×2 (09:15→20:26)
[2020-12-09] MEDS: Dronabinol 2.5 MG CAP PO SCH ×2 (09:15→17:00)
[2020-12-09] MEDS: Carvedilol 25 MG TAB PO SCH ×2 (09:16→17:00)
[2020-12-09] MEDS: cloNIDine 0.1 MG TAB PO SCH ×2 (09:16→20:26)
[2020-12-09] MEDS: traMADol HCl 50 MG TAB PO SCH ×2 (09:16→20:26)
[2020-12-09] MEDS: TICAGRELOR 90 MG TABLET PO SCH ×2 (09:17→20:25)
[2020-12-09] MEDS: Cholecalciferol 1,000 UNITS (25 MCG) TAB PO SCH (09:18)
[2020-12-09] MEDS: Ascorbic Acid 500 mg Chewable Tablet PO SCH ×2 (09:25→20:25)
[2020-12-09] MEDS: Scopolamine 1.5 mg/72 hour Patch TD SCH (16:59)
[2020-12-09] MEDS: Mirtazapine 15 MG Soltab PO SCH (20:24)
[2020-12-09] MEDS: Atorvastatin Calcium 40 MG TAB PO SCH (20:25)
[2020-12-10] MEDS: Mupirocin 2% Ointment 22 GM Tube TOP SCH ×2 (09:04→20:11)
[2020-12-10] MEDS: Polyethylene Glycol 3350 17 GM Packet PO SCH (09:04)
[2020-12-10] MEDS: Furosemide 80 MG TAB PO SCH ×2 (09:05→15:00)
[2020-12-10] MEDS: cloNIDine 0.1 MG TAB PO SCH ×2 (09:05→20:04)
[2020-12-10] MEDS: Fluticasone Propionate Nasal Spray 16 gm Bottle NASAL SCH (09:05)
[2020-12-10] MEDS: Ferrous Sulfate 325 MG TAB PO SCH ×2 (09:05→20:05)
[2020-12-10] MEDS: Aspirin 81 mg Enteric Coated Tablet PO SCH ×2 (09:06→20:05)
[2020-12-10] MEDS: Metolazone 5 MG TAB PO SCH (09:06)
[2020-12-10] MEDS: Famotidine 20 MG TAB PO SCH (09:06)
[2020-12-10] MEDS: TICAGRELOR 90 MG TABLET PO SCH ×2 (09:06→20:05)
[2020-12-10] MEDS: Cholecalciferol 1,000 UNITS (25 MCG) TAB PO SCH (09:06)
[2020-12-10] MEDS: Senokot S 8.6-50 MG TAB PO SCH ×2 (09:06→20:05)
[2020-12-10] MEDS: Ascorbic Acid 500 mg Chewable Tablet PO SCH ×2 (09:06→20:05)
[2020-12-10] MEDS: traMADol HCl 50 MG TAB PO SCH ×2 (09:07→20:06)
[2020-12-10] MEDS: Carvedilol 25 MG TAB PO SCH ×2 (09:07→18:41)
[2020-12-10] MEDS: hydrALAZINE 25 MG TAB PO SCH ×2 (09:07→20:04)
[2020-12-10] MEDS: Dronabinol 2.5 MG CAP PO SCH ×2 (09:07→18:41)
[2020-12-10] MEDS: Calcium Carbonate 500 MG ChewTAB PO SCH ×3 (09:08→18:41)
[2020-12-10] MEDS: Mirtazapine 15 MG Soltab PO SCH (20:03)
[2020-12-10] MEDS: Atorvastatin Calcium 40 MG TAB PO SCH (20:05)
[2020-12-11 05:57] LABS: ALT (SGPT) 10 U/L (8-55); AST (SGOT) 19 U/L (5-34); Albumin 2.3 g/dL (3.5-5.0); Alkaline Phosphatase 182 U/L (40-110); Anion Gap 13 mmol/L (10-20); BUN (Urea Nitrogen) 16 mg/dL (8.4-25.7); Bilirubin, Total 0.7 mg/dL (0.2-1.2); Calc. Creatinine Clearance 36 mL/min (70-130); Calcium 7.8 mg/dL (7.8-10.44); Carbon Dioxide 31 mmol/L (22-29); Chloride 98 mmol/L (98-107); Globulin 3.8 g/dL (2.4-3.5); Glucose 106 mg/dL (70-105); Potassium 3.2 mmol/L (3.5-5.1); Protein, Total 6.1 g/dL (6.0-8.3); Sodium 139 mmol/L (136-145)
[2020-12-11] MEDS: traMADol HCl 50 MG TAB PO SCH ×2 (08:01→20:29)
[2020-12-11] MEDS: Dronabinol 2.5 MG CAP PO SCH ×2 (08:02→17:38)
[2020-12-11] MEDS: Senokot S 8.6-50 MG TAB PO SCH ×2 (08:03→20:29)
[2020-12-11] MEDS: TICAGRELOR 90 MG TABLET PO SCH ×2 (08:03→20:29)
[2020-12-11] MEDS: Famotidine 20 MG TAB PO SCH (08:03)
[2020-12-11] MEDS: Cholecalciferol 1,000 UNITS (25 MCG) TAB PO SCH (08:04)
[2020-12-11] MEDS: cloNIDine 0.1 MG TAB PO SCH ×2 (08:04→20:29)
[2020-12-11] MEDS: Ferrous Sulfate 325 MG TAB PO SCH ×2 (08:04→20:29)
[2020-12-11] MEDS: Metolazone 5 MG TAB PO SCH (08:04)
[2020-12-11] MEDS: Aspirin 81 mg Enteric Coated Tablet PO SCH ×2 (08:04→20:28)
[2020-12-11] MEDS: Carvedilol 25 MG TAB PO SCH ×2 (08:05→17:56)
[2020-12-11] MEDS: Furosemide 80 MG TAB PO SCH ×2 (08:05→15:18)
[2020-12-11] MEDS: Ascorbic Acid 500 mg Chewable Tablet PO SCH ×2 (08:05→20:30)
[2020-12-11] MEDS: Mupirocin 2% Ointment 22 GM Tube TOP SCH ×2 (08:05→20:28)
[2020-12-11] MEDS: hydrALAZINE 25 MG TAB PO SCH ×2 (08:05→20:28)
[2020-12-11] MEDS: Allopurinol 100 MG TAB PO SCH (08:05)
[2020-12-11] MEDS: Fluticasone Propionate Nasal Spray 16 gm Bottle NASAL SCH (08:06)
[2020-12-11] MEDS: Polyethylene Glycol 3350 17 GM Packet PO SCH (08:06)
[2020-12-11] MEDS: Calcium Carbonate 500 MG ChewTAB PO SCH ×3 (08:06→18:17)
[2020-12-11] MEDS ORDERED: Collagenase 250 UNITS/GM Ointment 30 GM TUBE TOP PRN (16:00)
[2020-12-11] MEDS: Atorvastatin Calcium 40 MG TAB PO SCH (20:28)
[2020-12-11] MEDS: Mirtazapine 15 MG Soltab PO SCH (20:29)
[2020-12-12 04:03] VITALS: BMI 20.7
[2020-12-12 05:54] LABS: #Eosinphils 0.2 thou/uL (0.0-0.7)
[2020-12-12 05:55] LABS: #Basophils 0.2 thou/uL (0.0-0.2); #Lymphocytes 0.5 thou/uL (1.20-3.40); #Monocytes 1.6 thou/uL (0.11-0.59); #Neutrophils 20.8 thou/uL (1.40-6.50); %Basophils 0.7 % (0.0-1.0); %Eosinophils 0.7 % (0.0-10.0); %Monocytes 6.8 % (0.0-10.0); %Neutrophils 89.7 % (42.0-75.0); Hemoglobin 8.7 g/dL (14.0-18.0); Mean Corpuscular HGB CONC 29.1 g/dL (32.0-36.0); Mean Corpuscular Hemoglobin 30.2 pg (27.0-31.0); Platelet Count 312 thou/uL (130-400); RBC Distribution Width 18.4 % (11.5-14.5); Red Blood Cell (RBC) Count 2.87 mill/uL (4.70-6.10); White Blood Cell (WBC) Count 23.2 thou/uL (4.8-10.8)
[2020-12-12 06:01] LABS: Anion Gap 13 mmol/L (10-20); BUN (Urea Nitrogen) 25 mg/dL (8.4-25.7); Calc. Creatinine Clearance 27 mL/min (70-130); Calcium 7.9 mg/dL (7.8-10.44); Carbon Dioxide 30 mmol/L (22-29); Chloride 98 mmol/L (98-107); Glucose 123 mg/dL (70-105); Potassium 3.4 mmol/L (3.5-5.1); Sodium 138 mmol/L (136-145)
[2020-12-12] MEDS: hydrALAZINE 25 MG TAB PO SCH ×2 (08:20→20:36)
[2020-12-12] MEDS: Carvedilol 25 MG TAB PO SCH ×2 (08:20→17:34)
[2020-12-12] MEDS: Polyethylene Glycol 3350 17 GM Packet PO SCH (08:20)
[2020-12-12] MEDS: cloNIDine 0.1 MG TAB PO SCH ×2 (08:22→20:37)
[2020-12-12] MEDS: traMADol HCl 50 MG TAB PO SCH ×2 (08:22→20:38)
[2020-12-12] MEDS: Dronabinol 2.5 MG CAP PO SCH ×2 (08:22→17:35)
[2020-12-12] MEDS: Fluticasone Propionate Nasal Spray 16 gm Bottle NASAL SCH (08:23)
[2020-12-12] MEDS: Mupirocin 2% Ointment 22 GM Tube TOP SCH ×2 (08:23→20:35)
[2020-12-12] MEDS: Cholecalciferol 1,000 UNITS (25 MCG) TAB PO SCH (08:24)
[2020-12-12] MEDS: TICAGRELOR 90 MG TABLET PO SCH ×2 (08:24→20:40)
[2020-12-12] MEDS: Senokot S 8.6-50 MG TAB PO SCH ×2 (08:24→20:37)
[2020-12-12] MEDS: Metolazone 5 MG TAB PO SCH (08:24)
[2020-12-12] MEDS: Famotidine 20 MG TAB PO SCH (08:24)
[2020-12-12] MEDS: Aspirin 81 mg Enteric Coated Tablet PO SCH ×2 (08:24→20:36)
[2020-12-12] MEDS: Ferrous Sulfate 325 MG TAB PO SCH ×2 (08:25→20:36)
[2020-12-12] MEDS: Furosemide 80 MG TAB PO SCH ×2 (08:25→15:56)
[2020-12-12] MEDS: Ascorbic Acid 500 mg Chewable Tablet PO SCH ×2 (08:25→20:36)
[2020-12-12] MEDS: Calcium Carbonate 500 MG ChewTAB PO SCH ×3 (08:26→17:45)
[2020-12-12] MEDS: Mirtazapine 15 MG Soltab PO SCH (20:35)
[2020-12-12] MEDS: Atorvastatin Calcium 40 MG TAB PO SCH (20:35)
[2020-12-13 05:49] LABS: #Basophils 0.1 thou/uL (0.0-0.2); #Lymphocytes 0.4 thou/uL (1.20-3.40); #Monocytes 1.7 thou/uL (0.11-0.59); #Neutrophils 25.7 thou/uL (1.40-6.50); %Basophils 0.5 % (0.0-1.0); %Eosinophils 0.1 % (0.0-10.0); %Lymphocytes 1.5 % (21.0-51.0); %Monocytes 5.9 % (0.0-10.0); Hemoglobin 8.5 g/dL (14.0-18.0); Mean Corpuscular HGB CONC 29.4 g/dL (32.0-36.0); Mean Corpuscular Hemoglobin 30.4 pg (27.0-31.0); Mean Platelet Volume 5.9 fL (7.4-10.4); Platelet Count 335 thou/uL (130-400); RBC Distribution Width 18.7 % (11.5-14.5); White Blood Cell (WBC) Count 27.9 thou/uL (4.8-10.8)
[2020-12-13 08:14] VITALS: TEMP 98.1
[2020-12-13] MEDS: Fluticasone Propionate Nasal Spray 16 gm Bottle NASAL SCH (08:55)
[2020-12-13] MEDS: Polyethylene Glycol 3350 17 GM Packet PO SCH (08:56)
[2020-12-13] MEDS: Mupirocin 2% Ointment 22 GM Tube TOP SCH (08:56)
[2020-12-13] MEDS: cloNIDine 0.1 MG TAB PO SCH (08:57)
[2020-12-13] MEDS: Carvedilol 25 MG TAB PO SCH (08:58)
[2020-12-13] MEDS: Aspirin 81 mg Enteric Coated Tablet PO SCH (08:58)
[2020-12-13] MEDS: traMADol HCl 50 MG TAB PO SCH (08:58)
[2020-12-13] MEDS: Cholecalciferol 1,000 UNITS (25 MCG) TAB PO SCH (08:59)
[2020-12-13] MEDS: hydrALAZINE 25 MG TAB PO SCH (08:59)
[2020-12-13] MEDS: Dronabinol 2.5 MG CAP PO SCH (09:00)
[2020-12-13] MEDS: Ascorbic Acid 500 mg Chewable Tablet PO SCH (09:00)
[2020-12-13] MEDS: Senokot S 8.6-50 MG TAB PO SCH (09:00)
[2020-12-13] MEDS: Metolazone 5 MG TAB PO SCH (09:00)
[2020-12-13] MEDS: Ferrous Sulfate 325 MG TAB PO SCH (09:00)
[2020-12-13] MEDS: Famotidine 20 MG TAB PO SCH (09:00)
[2020-12-13] MEDS: Calcium Carbonate 500 MG ChewTAB PO SCH ×2 (09:01→12:31)
[2020-12-13] MEDS: Furosemide 80 MG TAB PO SCH (09:01)
[2020-12-13] MEDS: Allopurinol 100 MG TAB PO SCH (09:01)
[2020-12-13] MEDS: TICAGRELOR 90 MG TABLET PO SCH (09:01)
[2020-12-13 12:26] VITALS: BP 113/73
[2020-12-13] MEDS ORDERED: Piperacillin/Tazobactam 2.25 GM in Sodium Chloride 0.9% 100 ML IVPB SCH (14:00)
[2020-12-13 16:20] LABS: RBC/HPF 0-3 HPF (0-3)
[2020-12-13 16:21] LABS: Bacteria/HPF Rare-Few HPF (None Seen); Bilirubin Negative (Negative); Clarity Clear (Clear); Glucose, Urine (Dipstick) Negative (Negative); Ketone, Urine Negative (Negative); Leukocyte Negative (Negative); Nitrite Negative (Negative); Protein, Urine (Dipstick) 100 mg/dL (Neg-Trace); Specific Gravity, Urine 1.015 (1.002-1.036); Squamous Epithelial 0-3 HPF (0-3); Urobilinogen 0.2 mg/dL (Less than 2)
[2020-12-13 16:22] LABS: Blood, Urine Trace (Negative)
== END 2020-12-13 14:45 | disposition short-term general hospital (02) | DRG 559 ==
LOC: NAV ACUTE 19:52
PROVIDERS: ADMIT Family Medicine; ATTEND Family Medicine
DX: S72.001D Fracture of unspecified part of neck of right femur, subsequent encounter for closed fracture with routine healing (principal); N18.6 End stage renal disease; I13.2 Hypertensive heart and chronic kidney disease with heart failure and with stage 5 chronic kidney disease, or end stage renal disease; J90 Pleural effusion, not elsewhere classified; L97.929 Non-pressure chronic ulcer of unspecified part of left lower leg with unspecified severity; L97.919 Non-pressure chronic ulcer of unspecified part of right lower leg with unspecified severity; J96.11 Chronic respiratory failure with hypoxia; I50.22 Chronic systolic (congestive) heart failure; E46 Unspecified protein-calorie malnutrition; E78.5 Hyperlipidemia, unspecified; E11.22 Type 2 diabetes mellitus with diabetic chronic kidney disease; E11.40 Type 2 diabetes mellitus with diabetic neuropathy, unspecified; E11.319 Type 2 diabetes mellitus with unspecified diabetic retinopathy without macular edema; I25.10 Atherosclerotic heart disease of native coronary artery without angina pectoris; F32.9 Major depressive disorder, single episode, unspecified; L89.159 Pressure ulcer of sacral region, unspecified stage; E11.622 Type 2 diabetes mellitus with other skin ulcer; D63.1 Anemia in chronic kidney disease; D63.8 Anemia in other chronic diseases classified elsewhere; X58.XXXD Exposure to other specified factors, subsequent encounter; R53.81 Other malaise; Z99.2 Dependence on renal dialysis; Z98.890 Other specified postprocedural states; Z95.5 Presence of coronary angioplasty implant and graft; Z90.49 Acquired absence of other specified parts of digestive tract; Z82.49 Family history of ischemic heart disease and other diseases of the circulatory system; Z87.891 Personal history of nicotine dependence; Z79.82 Long term (current) use of aspirin; Z79.899 Other long term (current) drug therapy; Z68.20 Body mass index [BMI] 20.0-20.9, adult
CPT/HCPCS: 36416; 80048; 80053; 81001; 82274; 84145; 85025; 85652; 86140; 87040; 87070; 87077; 87086; 87186; 87205; 97602; J1815; Q0162; Q0167